=== PATIENT | male | born 1950 ===

== ENCOUNTER 2022-10-15 06:50 | Day surgery (SDC) | payer OTHER | END 2022-10-15 13:45 | disposition home or self-care (01) | LOC: AMB-ENDOS 06:50 | PROVIDERS: ATTEND Surgery | DX: D12.0 Benign neoplasm of cecum (principal); D12.2 Benign neoplasm of ascending colon; D12.4 Benign neoplasm of descending colon; D12.7 Benign neoplasm of rectosigmoid junction; K57.20 Diverticulitis of large intestine with perforation and abscess without bleeding; K43.5 Parastomal hernia without obstruction or gangrene; Z93.3 Colostomy status; Z20.822 Contact with and (suspected) exposure to COVID-19 ==

== ENCOUNTER 2023-01-21 08:15 | Inpatient (IN) | payer OTHER ==
[~2023-01-21] VITALS: Ht 157.5 cm; Wt 74.4 kg
[2023-01-21] MEDS ORDERED: HUMULIN 70100 UNIT/2 (09:28)
[2023-01-21] MEDS ORDERED: HUMULIN 70100 UNIT/1 (09:28)
[2023-01-21] MEDS ORDERED: [UNRECOGNIZED DRUG - OTHER] PO (09:29)
[2023-01-21] MEDS ORDERED: CHILDREN'S ASPI81 MG PO (09:29)
[2023-01-21 09:34] LABS: PH,URINE 5.5 (5.0-8.0); URINE APPEARANCE Clear; URINE BILIRRUBIN Negative (NEGATIVE); URINE BLOOD Negative; URINE COLOR Yellow; URINE LEUKOCYTE Negative; URINE NITRATE Negative; URINE PROTEIN 30 (NEGATIVE); URINE UROBILINOGEN 0.2 E.U./dl
[2023-01-21 09:38] LABS: URINE BACTERIA 7.5 uL (0.0-1933); URINE WBC 2.9 uL (0.0-23.2)
[2023-01-21 09:50] LABS: HEMATOCRIT 35.9 % (39.0-48.0); HEMOGLOBIN 12.2 g/dL (13-16.00); MEAN CELL VOLUME 89.6 fL (80.0-100.00); MEAN CORPUSCULAR HEMOGLOBIN 30.3 pg (27.00-32.0); MEAN CORPUSCULAR HGB CONC 33.9 g/dl (32.0-36.0); PLATELET COUNT 148 K/uL (150-450); RED BLOOD COUNT 4.01 M/uL (4.00-6.00); RED CELL DISTRIBUTION WIDTH 14.8 % (11.5-14.5)
[2023-01-21 09:54] LABS: URINE GLUCOSE 250 MG/DL (NEGATIVE); URINE RBC 0.2 uL (0.0-20.8)
[2023-01-21 09:57] LABS: INR 1.05; PARTIAL THROMBOPLASTIN TIME 26.8 SECONDS (22.0-34.0)
[2023-01-21 10:05] LABS: ALBUMIN 3.6 gm/dL (3.4-5.0); BILIRUBIN TOTAL 1.11 mg/dL (0.3-1.2); CALCIUM 9.1 mg/dL (8.5-10.1); CREATININE SERUM 1.47 mg/dL (0.70-1.30); GFR 47.22; GLOBULINA 3.7 G/DL (2.4-3.5); POTASSIUM 4.91 mEq/L (3.5-5.1); TOTAL PROTEIN 7.3 gm/dL (6.4-8.2)
[2023-01-28 07:51] LABS: HEMATOCRIT 34.9 % (39.0-48.0); HEMOGLOBIN 11.6 g/dL (13-16.00); MEAN CELL VOLUME 90.2 fL (80.0-100.00); MEAN CORPUSCULAR HEMOGLOBIN 29.8 pg (27.00-32.0); MEAN CORPUSCULAR HGB CONC 33.1 g/dl (32.0-36.0); PLATELET COUNT 163 K/uL (150-450); RED BLOOD COUNT 3.87 M/uL (4.00-6.00); RED CELL DISTRIBUTION WIDTH 14.4 % (11.5-14.5)
[2023-01-28 08:22] LABS: ALBUMIN 3.1 gm/dL (3.4-5.0); CALCIUM 8.6 mg/dL (8.5-10.1); CREATININE SERUM 1.52 mg/dL (0.70-1.30); GFR 45.43; MAGNESIUM 1.9 mg/dL (1.8-2.4); PHOSPHOROUS 4.2 mg/dL (2.5-4.9); POTASSIUM 4.59 mEq/L (3.5-5.1)
[2023-01-30] MEDS ORDERED: HYOSCYAMINE0.125 M1 SL (16:16)
== END 2023-01-30 16:47 | disposition home or self-care (01) | DRG 331 ==
LOC: O/R 01-27 07:14 → SURG 01-27 08:15 → SURH 01-27 19:46
PROVIDERS: Surgery; ADMIT Surgery; ATTEND Surgery
PROC: 0DBN4ZZ Excision of Sigmoid Colon, Percutaneous Endoscopic Approach (ICD-10-PCS; 2023-01-27)
PROC: 0WQF0ZZ Repair Abdominal Wall, Open Approach (ICD-10-PCS; 2023-01-27)
PROC: 0DN84ZZ Release Small Intestine, Percutaneous Endoscopic Approach (ICD-10-PCS; 2023-01-27)
PROC: 3E0F7SF Introduction of Other Gas into Respiratory Tract, Via Natural or Artificial Opening (ICD-10-PCS; 2023-01-27)
PROC: 0DJD8ZZ Inspection of Lower Intestinal Tract, Via Natural or Artificial Opening Endoscopic (ICD-10-PCS; 2023-01-27)
PROC: 0DB84ZZ Excision of Small Intestine, Percutaneous Endoscopic Approach (ICD-10-PCS; principal; 2023-01-27 10:15)
PROC: 0DTP4ZZ Resection of Rectum, Percutaneous Endoscopic Approach (ICD-10-PCS; 2023-01-27 10:15)
DX: K57.20 Diverticulitis of large intestine with perforation and abscess without bleeding (principal); K43.5 Parastomal hernia without obstruction or gangrene; K66.0 Peritoneal adhesions (postprocedural) (postinfection); K43.2 Incisional hernia without obstruction or gangrene; E11.9 Type 2 diabetes mellitus without complications; I10 Essential (primary) hypertension; Z79.4 Long term (current) use of insulin; Z43.3 Encounter for attention to colostomy